=== PATIENT | female | born 1960 | race Caucasian/White ===

== ENCOUNTER 2021-12-25 13:40 | Outpatient (CLI) | payer BC | END 2021-12-25 13:41 | disposition home or self-care (01) | LOC: CSHULT 13:40 | PROVIDERS: ATTEND Student in an Organized Health Care Education/Training Program | DX: I83.92 Asymptomatic varicose veins of left lower extremity (principal) ==

== ENCOUNTER 2025-02-25 13:22 | Outpatient (CLI) | payer MEDICARE | END 2025-02-25 13:23 | disposition home or self-care (01) | LOC: CSHMAMMO 13:22 | PROVIDERS: ATTEND Family Medicine | DX: Z78.0 Asymptomatic menopausal state (principal); M85.89 Other specified disorders of bone density and structure, multiple sites | CPT/HCPCS: 77080 ==